=== PATIENT | male | born 1995 | race Caucasian/White ===

== ENCOUNTER 2016-12-05 16:44 | Emergency (ER) | payer MEDICAID, OTHER ==
[~2016-12-05] VITALS: Ht 185.4 cm; Wt 83.9 kg
[2016-12-05 16:58] VITALS: BP 150/70
[2016-12-05] MEDS ORDERED: KETOROLAC TROMETH 60MG/2ML VIAL IM ONE (18:45)
== END 2016-12-05 19:16 | disposition home or self-care (01) ==
LOC: ER 16:54
DX: M41.35 Thoracogenic scoliosis, thoracolumbar region (principal); G89.29 Other chronic pain; M54.5 Low back pain
CPT/HCPCS: 96372; 99283; J1885

== ENCOUNTER 2021-06-11 19:53 | Emergency (ER) | payer SELFPAY ==
[~2021-06-11] VITALS: Ht 185.4 cm; Wt 79.4 kg
[2021-06-11 22:14] VITALS: BP 142/85
[2021-06-11] MEDS ORDERED: TETANUS-DIPTH-ACEL PERTUSSIS 0.5ML SYR Tdap IM ONE (23:30)
== END 2021-06-11 23:31 | disposition home or self-care (01) ==
LOC: ER 19:55
DX: S60.111A Contusion of right thumb with damage to nail, initial encounter (principal); S67.01XA Crushing injury of right thumb, initial encounter; W22.8XXA Striking against or struck by other objects, initial encounter; Y93.89 Activity, other specified; Y92.89 Other specified places as the place of occurrence of the external cause; Y99.8 Other external cause status
CPT/HCPCS: 73130; 90471; 90715